=== PATIENT | female | born 1955 | race African-American/Black ===

== ENCOUNTER 2018-10-10 12:52 | Inpatient (IN) | payer BC, MEDICAID ==
[~2018-10-10] VITALS: Ht 161.3 cm; Wt 49.9 kg
[2018-10-10 13:48] LABS: HEMATOCRIT. 34.7 % (36.0-48.0); HEMOGLOBIN. 11.5 g/dL (12.0-16.0); MEAN CORPUSCULAR HEMOGLOBIN 28.6 pg (28.0-32.0); MEAN CORPUSCULAR VOLUME 86.5 fL (81.0-99.0); MEAN PLATELET VOLUME 9.1 fl (7.4-10.4); PLATELET 140 x1000/uL (130-400); RED BLOOD CELL COUNT 4.01 mill/uL (4.2-5.4); RED CELL DISTRIBUTION WIDTH 15.8 % (11.6-14.6)
[2018-10-10 13:54] LABS: CHLORIDE 113 mEq/L (98-107)
[2018-10-10 13:55] LABS: PROTHROMBIN TIME 10.6 sec (9.6-11.0)
[2018-10-10 13:59] LABS: ETHANOL BLOOD < 10 mg/dL
[2018-10-10 14:12] LABS: PLATELET ESTIMATE NORMAL
[2018-10-10] MEDS: HALOPERIDOL LACTATE 5MG/ML VIAL IM NR ×2 (16:18→16:38)
[2018-10-10] MEDS: FUROSEMIDE 20MG/2ML VIAL IVP NR ×2 (16:38→18:02)
[2018-10-10] MEDS ORDERED: ASPIRIN 81MG TABLET PO NR (17:30)
[2018-10-11] VITALS (7 sets, daily range): BP systolic 96–186; BP diastolic 59–95
[2018-10-11 00:13] LABS: CLARITY URINE CLEAR (CLEAR); COLOR URINE YELLOW (YELLOW); KETONES URINE NEGATIVE (NEGATIVE); LEUKOCYTE ESTERASE URINE NEGATIVE (NEGATIVE); NITRITE URINE NEGATIVE (NEGATIVE); OCCULT BLOOD URINE NEGATIVE (NEGATIVE); PROTEIN URINE 3+ (NEGATIVE); SPECIFIC GRAVITY URINE 1.019 (1.005-1.030); UROBILINOGEN URINE 0.2 E.U./dL (0.2-1.0)
[2018-10-11 00:24] LABS: *AMPHETAMINES SCREEN URINE NEGATIVE (NEGATIVE); *BARBITURATES SCREEN URINE NEGATIVE (NEGATIVE)
[2018-10-11 00:25] LABS: *BENZODIAZEPINES SCREEN URINE NEGATIVE (NEGATIVE); *COCAINE SCREEN URINE NEGATIVE (NEGATIVE); METHADONE URINE SCREEN NEGATIVE (NEGATIVE); OPIATES URINE SCREEN NEGATIVE (NEGATIVE); PHENCYCLIDINE URINE SCREEN NEGATIVE (NEGATIVE)
[2018-10-11 00:26] LABS: CANNABINOID URINE SCREEN NEGATIVE (NEGATIVE)
[2018-10-11] MEDS: CLONIDINE 0.1MG TABLET PO PRN ×2 (05:52→18:39)
[2018-10-11 06:19] LABS: BASOPHILS % 0.7 % (0.0-2.0); EOSINOPHILS % 1.4 % (0.0-5.0); HEMATOCRIT. 35.9 % (36.0-48.0); HEMOGLOBIN. 11.6 g/dL (12.0-16.0); LYMPHOCYTES % 46.1 % (20.0-50.0); MEAN CORPUSCULAR HEMOGLOBIN 28.5 pg (28.0-32.0); MEAN PLATELET VOLUME 9.8 fl (7.4-10.4); MONOCYTES % 11.1 % (2.0-8.0); NEUTROPHILS % 40.7 % (40.0-76.0); PLATELET 114 x1000/uL (130-400); RED BLOOD CELL COUNT 4.09 mill/uL (4.2-5.4)
[2018-10-11] MEDS ORDERED: PNEUMOCOCCAL 23-VAL P-SAC VAC 0.5 ML IM ONE (08:00)
[2018-10-11] MEDS ORDERED: LISINOPRIL 10MG TABLET PO SCH (09:00)
[2018-10-11] MEDS ORDERED: FUROSEMIDE 20MG/2ML VIAL IVP SCH (09:00)
[2018-10-11] MEDS: ASPIRIN 81MG TABLET PO SCH (09:37)
[2018-10-11] MEDS: POTASSIUM CHLORIDE 20MEQ TABLET SR PO SCH (09:37)
[2018-10-11] MEDS: METOPROLOL TARTRATE 25MG TABLET PO SCH (21:03)
[2018-10-12] VITALS (7 sets, daily range): BP systolic 147–196; BP diastolic 60–101
[2018-10-12] MEDS: CLONIDINE 0.1MG TABLET PO PRN (00:36)
[2018-10-12] MEDS: HYDRALAZINE 20MG/ML VIAL IV PRN (04:29)
[2018-10-12 06:54] LABS: BASOPHILS % 1.1 % (0.0-2.0); EOSINOPHILS % 2.1 % (0.0-5.0); HEMATOCRIT. 33.3 % (36.0-48.0); HEMOGLOBIN. 11.3 g/dL (12.0-16.0); LYMPHOCYTES % 51.9 % (20.0-50.0); MEAN CORPUSCULAR HEMOGLOBIN 29.2 pg (28.0-32.0); MEAN CORPUSCULAR VOLUME 86.5 fL (81.0-99.0); MEAN PLATELET VOLUME 10.4 fl (7.4-10.4); MONOCYTES % 9.4 % (2.0-8.0); NEUTROPHILS % 35.5 % (40.0-76.0); PLATELET 130 x1000/uL (130-400); RED BLOOD CELL COUNT 3.86 mill/uL (4.2-5.4); RED CELL DISTRIBUTION WIDTH 15.8 % (11.6-14.6)
[2018-10-12] MEDS: FUROSEMIDE 20MG/2ML VIAL IVP SCH (10:18)
[2018-10-12] MEDS: LISINOPRIL 10MG TABLET PO SCH (10:18)
[2018-10-12] MEDS: ASPIRIN 81MG TABLET PO SCH (10:18)
[2018-10-12] MEDS: POTASSIUM CHLORIDE 20MEQ TABLET SR PO SCH (10:18)
[2018-10-12] MEDS: METOPROLOL TARTRATE 25MG TABLET PO SCH ×2 (10:19→21:40)
[2018-10-13] VITALS: BP 166/74
[2018-10-13 04:00] VITALS: BP 190/84
[2018-10-13] MEDS: HYDRALAZINE 20MG/ML VIAL IV PRN (04:29)
[2018-10-13 08:15] VITALS: BP 164/73
[2018-10-13] MEDS: ASPIRIN 81MG TABLET PO SCH (08:25)
[2018-10-13] MEDS: FUROSEMIDE 20MG/2ML VIAL IVP SCH (08:25)
[2018-10-13] MEDS: LISINOPRIL 10MG TABLET PO SCH (08:25)
[2018-10-13] MEDS: POTASSIUM CHLORIDE 20MEQ TABLET SR PO SCH (08:25)
[2018-10-13] MEDS: METOPROLOL TARTRATE 25MG TABLET PO SCH (08:26)
[2018-10-13 12:00] VITALS: BP 167/71
[2018-10-13 12:39] VITALS: BP 154/71
[2018-10-13 13:24] VITALS: BP 154/76
== END 2018-10-13 13:55 | disposition home or self-care (01) | DRG 291 ==
LOC: ER 12:52 → 5WST 17:27 → ENRESERV 23:27
PROVIDERS: ADMIT Internal Medicine; ATTEND Internal Medicine
DX: I13.0 Hypertensive heart and chronic kidney disease with heart failure and stage 1 through stage 4 chronic kidney disease, or unspecified chronic kidney disease (principal); I50.43 Acute on chronic combined systolic (congestive) and diastolic (congestive) heart failure; R64 Cachexia; Z68.1 Body mass index [BMI] 19.9 or less, adult; N17.9 Acute kidney failure, unspecified; G20 Parkinson's disease; I48.91 Unspecified atrial fibrillation; F02.80 Dementia in other diseases classified elsewhere, unspecified severity, without behavioral disturbance, psychotic disturbance, mood disturbance, and anxiety; F17.200 Nicotine dependence, unspecified, uncomplicated; Z95.0 Presence of cardiac pacemaker; Z91.14 Patient's other noncompliance with medication regimen; N18.9 Chronic kidney disease, unspecified; I16.0 Hypertensive urgency
CPT/HCPCS: 36415; 71045; 80048; 80305; 80320; 83880; 84484; 90732; 93005; 97162; 99285; C1893; J0360; J1630; J1940; G0480

== ENCOUNTER 2018-10-14 10:52 | Emergency (ER) | payer BC, MEDICAID ==
[~2018-10-14] VITALS: Ht 160 cm; Wt 53.0 kg
[2018-10-14] MEDS ORDERED: SODIUM CHLORIDE 0.9% 1,000 ML IV ONE (11:21)
[2018-10-14 11:37] LABS: BASOPHILS % 1.4 % (0.0-2.0); EOSINOPHILS % 0.9 % (0.0-5.0); HEMATOCRIT. 40.1 % (36.0-48.0); LYMPHOCYTES % 37.2 % (20.0-50.0); MEAN CORPUSCULAR HEMOGLOBIN 28.3 pg (28.0-32.0); MEAN CORPUSCULAR VOLUME 87.3 fL (81.0-99.0); MEAN PLATELET VOLUME 9.8 fl (7.4-10.4); MONOCYTES % 10.3 % (2.0-8.0); NEUTROPHILS % 50.2 % (40.0-76.0); PLATELET 151 x1000/uL (130-400); RED BLOOD CELL COUNT 4.59 mill/uL (4.2-5.4); RED CELL DISTRIBUTION WIDTH 16.1 % (11.6-14.6)
[2018-10-14 11:44] LABS: CHLORIDE 110 mEq/L (98-107); INR 1.1; PROTHROMBIN TIME 10.9 sec (9.6-11.0)
[2018-10-14 11:48] LABS: ETHANOL BLOOD 27 mg/dL
[2018-10-14 12:45] LABS: CLARITY URINE CLEAR (CLEAR); COLOR URINE YELLOW (YELLOW); KETONES URINE NEGATIVE (NEGATIVE); LEUKOCYTE ESTERASE URINE 2+ (NEGATIVE); NITRITE URINE NEGATIVE (NEGATIVE); OCCULT BLOOD URINE NEGATIVE (NEGATIVE); PH URINE 6.5 (4.5-8.0); PROTEIN URINE 3+ (NEGATIVE); SPECIFIC GRAVITY URINE 1.016 (1.005-1.030); UROBILINOGEN URINE 0.2 E.U./dL (0.2-1.0)
[2018-10-14 13:03] LABS: *COCAINE SCREEN URINE NEGATIVE (NEGATIVE); METHADONE URINE SCREEN NEGATIVE (NEGATIVE); OPIATES URINE SCREEN NEGATIVE (NEGATIVE)
[2018-10-14 13:04] LABS: *AMPHETAMINES SCREEN URINE NEGATIVE (NEGATIVE); *BARBITURATES SCREEN URINE NEGATIVE (NEGATIVE); *BENZODIAZEPINES SCREEN URINE NEGATIVE (NEGATIVE); CANNABINOID URINE SCREEN NEGATIVE (NEGATIVE); PHENCYCLIDINE URINE SCREEN NEGATIVE (NEGATIVE)
[2018-10-14] MEDS ORDERED: CEFTRIAXONE 1 G PREMIX 50 ML IV ONE (13:15)
[2018-10-14] MEDS ORDERED: LORAZEPAM 1MG TABLET PO ONE (21:00)
[2018-10-15] MEDS ORDERED: CLONIDINE 0.1MG TABLET PO ONE (01:30)
[2018-10-15 06:25] VITALS: BP 196/61
[2018-10-15] MEDS ORDERED: CLONIDINE 0.2MG TABLET PO ONE (07:30)
== END 2018-10-15 10:58 | disposition home or self-care (01) ==
LOC: ER 12:26
DX: R45.1 Restlessness and agitation (principal); N39.0 Urinary tract infection, site not specified; E86.0 Dehydration; F10.129 Alcohol abuse with intoxication, unspecified; Y90.1 Blood alcohol level of 20-39 mg/100 ml; I10 Essential (primary) hypertension; Z59.0 Homelessness; F20.0 Paranoid schizophrenia
CPT/HCPCS: 36415; 70450; 71045; 80053; 80305; 80320; 81003; 82962; 85025; 85610; 96361; 96365; 99284; J0696; J7030; G0480